=== PATIENT | male | born 1955 | race African-American/Black ===

== ENCOUNTER 2018-06-10 07:53 | Outpatient (CLI) | payer OTHER | END 2018-06-10 07:54 | disposition home or self-care (01) | LOC: BICMRI 07:53 | PROVIDERS: ATTEND Orthopaedic Surgery | DX: S46.911A Strain of unspecified muscle, fascia and tendon at shoulder and upper arm level, right arm, initial encounter (principal); M19.011 Primary osteoarthritis, right shoulder; M75.51 Bursitis of right shoulder ==